=== PATIENT | male | born 1970 | race Two or more races ===

== ENCOUNTER 2018-04-10 19:38 | Emergency (ER) | payer SELFPAY ==
[~2018-04-10] VITALS: Ht 165.1 cm; Wt 86.2 kg
[2018-04-11 00:41] VITALS: BP 132/88
[2018-04-11] MEDS ORDERED: cefTRIAXone SOD 1,000 MG VL IM ONE (00:45)
[2018-04-11] MEDS ORDERED: AZITHROMYCIN 250 MG TAB PO ONE (00:45)
[2018-04-11] MEDS ORDERED: PENICILLIN G BENZ 1200000 UNITS/2 ML SYRG IM ONE (01:00)
== END 2018-04-11 01:50 | disposition home or self-care (01) ==
LOC: ER 19:52
DX: A64 Unspecified sexually transmitted disease (principal)
CPT/HCPCS: 96372; 99283; J0561; J0696